=== PATIENT | female | born 1985 | race Caucasian/White ===

== ENCOUNTER 2016-11-21 11:27 | Emergency (ER) | payer OTHER ==
[2016-11-21 11:32] VITALS: BP 107/66; PULSE 90; TEMP 97.6; BMI 25.3
--- NOTE | 2016-11-21 11:55 | PDOC ---
History of Present Illness - General History Source: Patient Exam Limitations: No Limitations - History of Present Illness Initial Comments: 11/21/16 12:15 The patient is a 31 year old female, A1 currently 12 weeks with no significant past medical history who presents to the emergency department with vaginal spotting for 4 days and bilaterally lower abdominal pain after urinating. She often notes having vaginal bleeding after urination accompanied with some mild abdominal discomfort. She also reports having morning sickness, vomiting 2-3 throughout the day. She denies recent fevers, chills, headache or dizziness. She denies recent diarrhea or constipation. She denies recent chest pain or shortness of breath. Allergies: NKA Past surgical history: None reported. Social history: Nonsmoker. Denies EtOH use and recreational drug use. <Victor Hugo Wilhelm - Last Filed: 11/21/16 12:17> <Mary Palma - Last Filed: 11/21/16 18:07> - General Chief Complaint: Vaginal Bleeding Stated Complaint: BLEEDING (12 WKS ) Time Seen by Provider: 11/21/16 11:53 Past History <Victor Hugo Wilhelm - Last Filed: 11/21/16 12:17> - Past Medical History Other medical history: none - Psycho/Social/Smoking Cessation Hx Anxiety: No Suicidal Ideation: No Smoking History: Never smoked Information on smoking cessation initiated: No Hx Alcohol Use: No Drug/Substance Use Hx: No Substance Use Type: None <Mary Palma - Last Filed: 11/21/16 18:07> - Past Medical History Allergies/Adverse Reactions: Allergies Allergy/AdvReac Type Severity Reaction Status Date / Time No Known Allergies Allergy Verified 11/21/16 11:28 Home Medications: Ambulatory Orders Vits #93/Iron Fum/FA [ Formula Tablet] 1 each PO DAILY Review of Systems - Review of Systems Comments:: 11/21/16 12:16 GENERAL/CONSTITUTIONAL: No: fever, chills, weakness, loss of appetite. HEAD, EYES, EARS, NOSE AND THROAT: No: change in vision, ear pain, discharge, sore throat, throat swelling. CARDIOVASCULAR: No: chest pain, lightheadedness, palpitations, syncope RESPIRATORY: No: cough, shortness of breath, wheezing, hemoptysis, stridor. GASTROINTESTINAL: +abd pain and vomiting . No: diarrhea, abdominal cramping, rectal bleeding, constipation. GENITOURINARY: +dysfunctional vaginal bleeding. No: dysuria, hematuria, frequency, urgency, flank pain. MUSCULOSKELETAL: No: back pain, neck pain, joint pain, muscle swelling or pain SKIN : No: lesions, pallor, rash or easy bruising. NEUROLOGIC: No: headache, vertigo, paresthesias, weakness ENDOCRINE: No: unexplained weight gain or loss HEMATOLOGIC/LYMPHATIC: No: anemia, easy bleeding, swelling nodes. <Victor Hugo Wilhelm - Last Filed: 11/21/16 12:17> *Physical Exam - Vital Signs Last Vital Signs Temp Pulse Resp BP Pulse Ox 97.6 F 90 18 107/66 100 11/21/16 11:30 11/21/16 11:30 11/21/16 11:30 11/21/16 11:30 11/21/16 11:30 - Physical Exam Comments: 11/21/16 12:17 GENERAL: The patient is in no acute distress. HEAD: Normal with no signs of trauma. EYES: PERRLA, EOMI, sclera anicteric, conjunctiva clear. ENT: Ears normal, nares patent, oropharynx clear without exudates. Moist mucous membranes. NECK: Normal range of motion, supple without lymphadenopathy, JVD, or masses. LUNGS: Breath sounds equal, clear to auscultation bilaterally. No wheezes, and no crackles. HEART: Regular rate and rhythm, normal S1 and S2 without murmur, rub or gallop. ABDOMEN: Soft, nontender, normoactive bowel sounds. No guarding, no rebound. No masses palpable. EXTREMITIES: Normal range of motion, no edema. No clubbing or cyanosis. No erythema, or tenderness. NEUROLOGICAL: Cranial nerves II through XII grossly intact. Normal speech. No focal neurological deficits. MUSCULOSKELETAL: Back non-tender to palpation, no CVA tenderness SKIN: Warm, Dry, normal turgor, no rashes or lesions noted. <Victor Hugo Wilhelm - Last Filed: 11/21/16 12:17> - Vital Signs Last Vital Signs Temp Pulse Resp BP Pulse Ox 97.6 F 90 18 107/66 100 11/21/16 11:30 11/21/16 11:30 11/21/16 11:30 11/21/16 11:30 11/21/16 11:30 <Mary Palma - Last Filed: 11/21/16 18:07> ED Treatment Course - LABORATORY CBC & Chemistry Diagram: 11/21/16 13:06 11/21/16 13:06 <Mary Palma - Last Filed: 11/21/16 18:07> Medical Decision Making - Medical Decision Making 11/21/16 12:19 Pt comes with pain with urination x 4 days and 4 days of vaginal spotting.Pt has a CLINICAL PSYCHOLOGIST named Tanya for her 12-13 week fetus (2 weeks ago she was told she is about 11 weeks gestation on ultrasound). Pt states that she is blood type O+ and that she is A1 she has a 12 yo child. She has no PMHx and she has no past surg hx. She is on no meds. She has been vomiting 2-3 times daily her usual morning sickness; she ate nothing today, as she came straight to the ER after waking up. 11/21/16 18:06 Pt's labs are normal; UA normal, and sono shows a 13 week 2 day fetus with good FH; stable for d/c home <Mary Palma - Last Filed: 11/21/16 18:07> *DC/Admit/Observation/Transfer - Attestations Scribe Attestion: 11/21/16 12:16 Documentation prepared by Victor Hugo Wilhelm, acting as medical biller/coder for Mary Palma MD. <Victor Hugo Wilhelm - Last Filed: 11/21/16 12:17> - Discharge Dispostion Admit: No <Mary Palma - Last Filed: 11/21/16 18:07> Diagnosis at time of Disposition: Threatened - Discharge Dispostion Disposition: ELOPED Condition at time of disposition: Stable - Referrals Referrals: Yohana Crump [Primary Care Provider] - - Patient Instructions Printed Discharge Instructions: Threatened Print Language: UKRAINIAN
[2016-11-21] MEDS ORDERED: SODIUM CHLORIDE 0.9% 500 ML INFUS.BAG IV ONE (12:18)
[2016-11-21 13:18] LABS: BASOPHIL 1.1 % (0-2.0); MCH 29.4 pg (25.7-33.7); MCHC 33.8 g/dl (32.0-36.0); MEAN PLT VOLUME 13.1 fl (7.5-11.1); NEUTROPHILS 56.5 % (42.8-82.8); PLATELET COUNT 158 K/MM3 (134-434); RDW 13.7 % (11.6-15.6)
[2016-11-21 13:44] LABS: ALBUMIN 3.4 g/dl (3.4-5.0); ANION GAP 8 (8-16); BILIRUBIN,TOTAL 0.3 mg/dL (0.2-1.0); CALCIUM 9.3 mg/dL (8.5-10.1); CO2 28 mmol/L (21-32); CREATININE 0.7 mg/dL (0.55-1.02); GLUCOSE,RANDOM 74 mg/dL (74-106); SGOT/AST 17 U/L (15-37); SGPT/ALT 16 U/L (12-78); TOT PROT 7.5 g/dl (6.4-8.2)
[2016-11-21 13:45] LABS: ALK PHOS 44 U/L (45-117)
[2016-11-21 15:44] LABS: URINE APPEARANCE CLEAR; URINE BILIRUBIN NEGATIVE (NEGATIVE); URINE BLOOD NEGATIVE (NEGATIVE); URINE COLOR COLORLESS; URINE GLUCOSE (UA) NEGATIVE (NEGATIVE); URINE KETONE NEGATIVE (NEGATIVE); URINE LEUK ESTERASE NEGATIVE (NEGATIVE); URINE NITRITE NEGATIVE (NEGATIVE); URINE PROTEIN NEGATIVE (NEGATIVE); URINE UROBILINOGEN NEGATIVE E.U./dl (0.2-1.0)
== END 2016-11-21 16:02 | disposition home or self-care (01) ==
LOC: JER 11:27
DX: O20.0 Threatened abortion (principal); Z3A.12 12 weeks gestation of pregnancy
CPT/HCPCS: 36415; 76801-TC; 80053; 81003; 84702; 85025; 86850; 86900; 86901; 99285-25

== ENCOUNTER 2017-05-15 06:30 | Inpatient (IN) | payer OTHER ==
[2017-05-15] MEDS ORDERED: BUTORPHANOL TARTRATE 1 MG/ML VIAL ONE (07:15)
[2017-05-15] MEDS ORDERED: PROMETHAZINE HCL 25 MG/1 ML VIAL ONE (07:16)
[2017-05-15] MEDS ORDERED: AMPICILLIN SODIUM 2 GM VIAL ONE (07:16)
[2017-05-15] MEDS ORDERED: PROMETHAZINE HCL 25 MG/1 ML VIAL IVPUSH ONE (07:27)
[2017-05-15] MEDS ORDERED: BUTORPHANOL TARTRATE 1 MG/ML VIAL IVPB ONE (07:27)
[2017-05-15] MEDS ORDERED: AMPICILLIN - 2 GM in SODIUM CHLORIDE 100 ML IVPB ONE (07:29)
[2017-05-15] MEDS ORDERED: DEXTROSE 5%-LACTATED RINGERS 1,000 ML IV SCH (07:30)
--- NOTE | 2017-05-15 07:37 | HP ---
Past Medical History - Primary Care Physician PCP:: Layne Ennis - Admission Chief Complaint: 32 yrs , 38.1/7 weeks ,onset Lp & srom at 6.00AM History of Present Illness: PNC at 2, [facility] chart not available h/o abn pap lgsil , colposcopy was done during pregn dating sonogram done on 11/09/16 11.4/7 weeks, edc assigned 05/28/17 anatomy sono 12/3116 20.3 weeks normal gbs neg noted when chart obtained after delivery History Source: Patient, Medical Record Limitations to Obtaining History: No Limitations - Past Medical History PREVENTION RN: No: CVA, Migraine, Seizure Cardiovascular: No: AFIB, HTN, Murmur Pulmonary: No: Asthma Gastrointestinal: Yes: Constipation, Hemorrhoids Renal/: No: UTI ...: 3 ...Para: 2 ...Term: 1 (2004 in ) ...: 1 (2002 at 32 weeks , baby in ) ...LMP: 08/21/16 ... Weeks Gestation by Dates: 38.1 ...EDC by Dates: 05/28/17 ...EDC by Sono: 05/28/17 Heme/Onc: Yes: Anemia Infectious Disease: Yes: Other (not known) Psych: Yes: Other (not known) - Past Surgical History Past Surgical History: Yes: None Hx Myomectomy: No Hx Transabdominal Cerclage: No - Smoking History Smoking history: Never smoked - Alcohol/Substance Use Hx Alcohol Use: No Home Medications - Allergies Allergies/Adverse Reactions: Allergies Allergy/AdvReac Type Severity Reaction Status Date / Time No Known Allergies Allergy Verified 05/15/17 07:20 - Home Medications Home Medications: Ambulatory Orders Vit 93/Iron Fum/Folic [ Formula Tablet] 1 each PO DAILY Physical Exam - Maternity Vital Signs: Selected Entries 05/15/17 17:59 Temperature 98 F Pulse Rate 78 Blood Pressure 117/80 Constitutional: Yes: Well Nourished, Severe Distress Eyes: Yes: WNL HENT: Yes: WNL Neck: Yes: WNL Cardiovascular: Yes: WNL Lungs: Clear to auscultation Breast(s): Yes: Other (not examined) - Abdominal Exam/OB Fundal Height: 40 Number of Fetuses: Single Presentation: Vertex Contractions: Yes Regularity: Regular (2-3 min) Intensity: Strong Monitor Mode: External Heart Rate (range): 130-140 Heart Rate Location: [facility] Category: I Accelerations: Uniform Decelerations: None - Vaginal Exam/OB Vaginal Bleediing: No Speculum Exam: No Dilatation (cm): 4 Effacement (%): 100 Amniotic Membrane Status: Ruptured Nitrazine Test: Positive Amniotic Fluid: Yes: Clear Presentation: Vertex/Position (exam at 7.10 AM) Station: 0 - Physical Exam Musculoskeletal: Yes: WNL Extremities: Yes: WNL. No: Calf Tenderness Edema: LLE: Trace, RLE: Trace Integumentary: Yes: Tattoos Deep Tendon Reflex Grade: Normal +2 ...Motor Strength: WNL Psychiatric: Yes: WNL, Alert, Oriented - Labs Lab Results: Laboratory Tests 05/15/17 05/15/17 05/15/17 07:54 07:54 07:54 Hgb 9.5 L D Hct 29.5 L D Plt Count 144 PT with INR 10.70 INR 0.95 PTT (Actin FS) 27.1 Sodium 137 Potassium 4.1 Chloride 107 Carbon Dioxide 21 D BUN 9 D Creatinine 0.8 RPR Titer HIV 1&2 Antibody Screen HIV P24 Antigen Blood Type Antibody Screen 05/15/17 05/15/17 05/15/17 07:54 07:54 07:54 Hgb Hct Plt Count PT with INR INR PTT (Actin FS) Sodium Potassium Chloride Carbon Dioxide BUN Creatinine RPR Titer Nonreactive HIV 1&2 Antibody Screen Negative HIV P24 Antigen Negative Blood Type O POSITIVE Antibody Screen Negative Problem List - Problems (1) with 38 completed weeks gestation Code(s): Z3A.38 - 38 WEEKS GESTATION OF (2) SROM (spontaneous rupture of membranes) Code(s): CEK5094 - (3) Labor established Code(s): [id number] - Assessment/Plan 32 yrs , 38.1 weeks iup, unknown gbs , srom , in active labor Plan gbs prophylaxis with IVAmpicillin anticipate vag , delivery
[2017-05-15] MEDS ORDERED: OXYTOCIN 20 UNITS in 0.9% NS 20 UNIT/1,000 ML INFUS.BAG IV ONE (07:56)
[2017-05-15] MEDS ORDERED: oxyCODONE HCL 5 MG TABLET PO PRN (08:07)
[2017-05-15] MEDS ORDERED: BENZOCAINE 20% 57 GM BOTTLE TP PRN (08:07)
[2017-05-15] MEDS ORDERED: METHYLERGONOVINE MALEATE 0.2 MG/1 ML AMP IM PRN (08:07)
[2017-05-15] MEDS ORDERED: WITCH HAZEL 50% (TUCKS) 40 PAD/JAR PAD TP PRN (08:07)
[2017-05-15] MEDS ORDERED: BISACODYL 10 MG SUPP.RECT RC PRN (08:07)
[2017-05-15] MEDS ORDERED: BENZOCAINE 28 GM HEMORRHOIDAL OINTMENT TP PRN (08:07)
--- NOTE | 2017-05-15 08:13 | PN ---
Delivery - Delivery Vaginal Delivery: No Problems, Spontaneous Episiotomy/Laceration: None EBL (cc): 200 Delivery, Single - Stages of Labor Date 1st Stage Initiatied: 05/15/17 Time 1st Stage Initiated: 06:00 Date 2nd Stage Initiated: 05/15/17 Time 2nd Stage Initiated: 07:55 Date of Delivery: 05/15/17 Time of Delivery: 07:57 Date Placenta Delivered: 05/15/17 Time Placenta Delivered: 08:00 Placenta: Yes: Spontaneous, Uterine Exploration - Condition of Ribbon Cutter/Parking Enforcement Technician Present: Yes Name: Chacorta Ramos Gender: Male Weight: 7 lb 15 oz Position: Left, OA Total Hours ROM (Hrs/Mins): 2hr, - 1 Minute Total Score: 9 5 Minutes Total Score: 9 - Feeding Plan Initial Plan: Elected not to breastfeed exclusively throughout hospitalization Remarks - Remarks Remarks: 32 yrs 38.1/7 weeks admitted with SROM & in active labor pnc at [address] [place] [address] gbs unknown , one dose iv ampicillin was given stadol 1 mg + phenrgan 25 mg iv stat completed 7 baby delivered intrapartum course uneventful
[2017-05-15] MEDS ORDERED: OXYTOCIN 20 UNITS in 0.9% NS 20 UNIT/1,000 ML INFUS.BAG IV SCH (08:15)
[2017-05-15 08:24] LABS: BASO % 0.7 % (0-2.0); EOS % 1.2 % (0-4.5); HEMATOCRIT 29.5 % (32.4-45.2); HEMOGLOBIN 9.5 GM/dL (10.7-15.3); LYMPH % 35.7 % (8-40); MCH 24.7 pg (25.7-33.7); MCHC 32.2 g/dl (32.0-36.0); MEAN CELL VOLUME 76.6 fl (80-96); MONO % 8.6 % (3.8-10.2); NEUT % 53.8 % (42.8-82.8); PLATELET COUNT 144 K/MM3 (134-434); RBC 3.86 M/mm3 (3.60-5.2); RDW 16.6 % (11.6-15.6); WHITE BLOOD COUNT 9.5 K/mm3 (4.0-10.0)
[2017-05-15 08:48] LABS: ANION GAP 9 (8-16); BLOOD UREA NITROGEN 9 mg/dL (7-18); CALCIUM 7.9 mg/dL (8.5-10.1); CHLORIDE 107 mmol/L (98-107); CO2 21 mmol/L (21-32); CREATININE 0.8 mg/dL (0.55-1.02); GLUCOSE,RANDOM 135 mg/dL (74-106); POTASSIUM 4.1 mmol/L (3.5-5.1); SODIUM 137 mmol/L (136-145)
[2017-05-15 09:02] LABS: INR 0.95 (0.82-1.09); PROTHROMBIN TIME (PATIENT) 10.7 SEC (9.98-11.88)
[2017-05-15 09:05] LABS: ACTIVATED PTT 27.1 SECONDS (26.9-34.4)
[2017-05-15] MEDS: PRENATAL VITAMINS W/ FOLIC ACID TABLET (FP) PO SCH (09:54)
[2017-05-15] MEDS ORDERED: AMPICILLIN - 1 GM in SODIUM CHLORIDE 100 ML IVPB SCH (11:30)
[2017-05-15] MEDS: IBUPROFEN 600 MG TABLET (FP) PO PRN (15:02)
[2017-05-15] MEDS: FERROUS SO4 325 MG TABLET (FP) PO SCH (16:31)
[2017-05-16] MEDS: ACETAMINOPHEN 325 MG TABLET (FP) PO PRN ×2 (06:22→21:14)
[2017-05-16] MEDS: IBUPROFEN 600 MG TABLET (FP) PO PRN ×2 (06:22→21:14)
--- NOTE | 2017-05-16 07:41 | PN ---
Post Progress Note - Subjective Subjective: no complains Post Day: 1 Type of Delivery: Vital Signs: Vital Signs Temperature 98.2 F 05/16/17 06:00 Pulse Rate 82 05/16/17 06:00 Respiratory Rate 20 05/16/17 06:00 Blood Pressure 113/71 05/16/17 06:00 O2 Sat by Pulse Oximetry (%) Breast Exam: Yes: Soft, Other (BF ). No: Engorged Uterus: Yes: Fundus Firm, Fundus below umbilicus, Non-tender Lochia: Yes: Rubra Lochia, amount: Moderate Extremities: Yes: Calves non-tender Perineum: Yes: Intact Activity: Ambulating - Labs Labs: CBC WBC 9.5 K/mm3 (4.0-10.0) 05/15/17 07:54 RBC 3.86 M/mm3 (3.60-5.2) 05/15/17 07:54 Hgb 9.5 GM/dL (10.7-15.3) L D 05/15/17 07:54 Hct 29.5 % (32.4-45.2) L D 05/15/17 07:54 MCV 76.6 fl (80-96) L 05/15/17 07:54 MCH 24.7 pg (25.7-33.7) L 05/15/17 07:54 MCHC 32.2 g/dl (32.0-36.0) 05/15/17 07:54 RDW 16.6 % (11.6-15.6) H D 05/15/17 07:54 Plt Count 144 K/MM3 (134-434) 05/15/17 07:54 MPV 12.0 fl (7.5-11.1) H 05/15/17 07:54 Neutrophils % 53.8 % (42.8-82.8) 05/15/17 07:54 Lymphocytes % 35.7 % (8-40) 05/15/17 07:54 Monocytes % 8.6 % (3.8-10.2) 05/15/17 07:54 Eosinophils % 1.2 % (0-4.5) 05/15/17 07:54 Basophils % 0.7 % (0-2.0) 05/15/17 07:54 Problem List - Problems (1) with 38 completed weeks gestation Code(s): Z3A.38 - 38 WEEKS GESTATION OF (2) SROM (spontaneous rupture of membranes) Code(s): FKK0476 - (3) Labor established Code(s): ZQF7456 - Assessment/Plan stable. anemia, hemodynamically stable pp cbc pending discharge tomorrow
[2017-05-16 08:36] LABS: BASO % 0.4 % (0-2.0); HEMATOCRIT 30.4 % (32.4-45.2); HEMOGLOBIN 9.6 GM/dL (10.7-15.3); LYMPH % 19.3 % (8-40); MCH 24.4 pg (25.7-33.7); MCHC 31.6 g/dl (32.0-36.0); MEAN CELL VOLUME 77.2 fl (80-96); MEAN PLT VOLUME 12.6 fl (7.5-11.1); MONO % 9.5 % (3.8-10.2); NEUT % 68.8 % (42.8-82.8); PLATELET COUNT 164 K/MM3 (134-434); RBC 3.95 M/mm3 (3.60-5.2); RDW 16.7 % (11.6-15.6); WHITE BLOOD COUNT 18.3 K/mm3 (4.0-10.0)
[2017-05-16] MEDS: FERROUS SO4 325 MG TABLET (FP) PO SCH ×2 (08:45→16:57)
[2017-05-16] MEDS: PRENATAL VITAMINS W/ FOLIC ACID TABLET (FP) PO SCH (09:41)
[2017-05-16] MEDS ORDERED: SENNOSIDES/DOCUSATE COMBO (SENNA PLUS) TABLET (UD) PO PRN (22:00)
[2017-05-17] MEDS: FERROUS SO4 325 MG TABLET (FP) PO SCH ×2 (08:00→17:01)
[2017-05-17] MEDS: PRENATAL VITAMINS W/ FOLIC ACID TABLET (FP) PO SCH (09:11)
--- NOTE | 2017-05-17 18:44 | PN ---
Progress Note (short form) - Note Progress Note: ppd 2 no c/o voids ok CBC, BMP 05/16/17 07:30 05/15/17 07:54 Last Vital Signs Temp Pulse Resp BP Pulse Ox 97.7 F 85 20 114/85 05/17/17 10:00 05/17/17 10:00 05/17/17 10:00 05/17/17 10:00 uterus firm ,non tender lochia mild no calf tenderness plan ambulate . d/c home, rtc 4 weeks
[2017-05-18] MEDS: PRENATAL VITAMINS W/ FOLIC ACID TABLET (FP) PO SCH (09:09)
[2017-05-18] MEDS: FERROUS SO4 325 MG TABLET (FP) PO SCH (09:09)
--- NOTE | 2017-05-18 09:12 | DS ---
Physical Exam-CONTENT ENGINEER Vital Signs: Vital Signs Temperature 98.1 F 05/17/17 22:00 Pulse Rate 97 H 05/17/17 22:00 Respiratory Rate 20 05/17/17 22:00 Blood Pressure 98/61 05/17/17 22:00 O2 Sat by Pulse Oximetry (%) Constitutional: Yes: Well Nourished Eyes: Yes: WNL HENT: Yes: WNL Neck: Yes: WNL Cardiovascular: Yes: WNL Respiratory: Yes: WNL Gastrointestinal: Yes: WNL ...Rectal Exam: Yes: WNL Renal/: Yes: WNL Pelvis: Yes: WNL External Genitalia: Yes: Normal ....Post : Yes: Uterus firm, Uterus non-tender, Moderate lochia rubra ( perineum intact) Breast(s): Yes: WNL (bf) Musculoskeletal: Yes: WNL Extremities: Yes: WNL. No: Calf Tenderness Edema: No Integumentary: Yes: WNL Neurological: Yes: WNL, Alert, Oriented ...Motor Strength: WNL Psychiatric: Yes: WNL Labs: CBC, BMP 05/16/17 07:30 05/15/17 07:54 Delivery - Delivery Vaginal Delivery: No Problems, Spontaneous Type of Anesthesia: None Episiotomy/Laceration: None EBL (cc): 200 Delivery, Single - Stages of Labor Date 1st Stage Initiatied: 05/15/17 Time 1st Stage Initiated: 06:00 Date 2nd Stage Initiated: 05/15/17 Time 2nd Stage Initiated: 07:55 Date of Delivery: 05/15/17 Time of Delivery: 07:57 Time Placenta Delivered: 08:00 Placenta: Yes: Spontaneous, Uterine Exploration - Condition of Supervisor General/Wood Experimental Mechanic Present: Yes Name: Chacorta Ramos Gender: Male Weight: 7 lb 15 oz Position: Left, OA Total Hours ROM (Hrs/Mins): 2hr, - 1 Minute Total Score: 9 5 Minutes Total Score: 9 - Feeding Plan Initial Plan: Elected not to breastfeed exclusively throughout hospitalization Remarks - Remarks Remarks: 32 yrs 38.1/7 weeks admitted with SROM & in active labor pnc at [address] [place] [address] gbs unknown , one dose iv ampicillin was given stadol 1 mg + phenrgan 25 mg iv stat completed 7 baby delivered intrapartum course uneventful anemia counselled Discharge Summary Reason For Visit: LABOR Current Active Problems Labor established (Acute) with 38 completed weeks gestation (Acute) SROM (spontaneous rupture of membranes) (Acute) Condition: Stable - Instructions Diet, Activity, Other Instructions: Post Instructions DIET: Continue good diet high in protein, calcium, and iron rich foods. Drink at least eight (8) glasses of water daily in addition to other fluids. ct Regular diet MEDICATIONS: Continue vitamins and iron as previously directed. Motrin and Tylenol may be taken for minor discomfort. ACTIVITY: Mild to moderate exercise may be started in two (2) weeks. Take frequent rest periods. Resume normal activity after six (6) week check up. WOUND CARE OF OPERATIVE SITE: Continue use of perineal bottle until vaginal discharge stops. Keep area clean. Shower daily. Keep abdominal wound dry. Report any drainage or redness to physician. Tub baths, tampons and douches are not permitted for [address] Breast feeding & or Bottle feeding BREAST CARE: (For those that are not breast feeding): If engorgement occurs: Wear tight fitting bra. Take Tylenol or Motrin for pain. Apply cold packs (ice in bags to each breast ) FAMILY PLANNING: There are many control alternatives to pursue and they should be discussed at your first office visit. You may resume sexual activity after your six (6) week check up. (Remember, breast feeding is not a contraceptive) NEXT PHYSICIAN APPOINTMENT: Be certain to call for a six (6) week appointment, unless otherwise directed. Call Clinic or got to Emergency Dept if you have any of the following: Heavy vaginal bleeding Painful urination Leg pain Unusual odor noted to vaginal bleeding High fever Red streaking noted on breast Referrals: Layne Ennis MD [Staff Physician] - Disposition: HOME - Home Medications Comprehensive Discharge Medication List: Ambulatory Orders Vit 93/Iron Fum/Folic [ Formula Tablet] 1 each PO DAILY Acetaminophen [Tylenol .Regular Strength -] 650 mg PO Q3H PRN tablet 05/16/17 Ferrous Sulfate [Feosol] 325 mg PO BIDWM #60 tab 05/16/17 Ibuprofen [Motrin -] 200 mg PO Q4H PRN tablet 05/16/17 Vitamins (Sjr) - 1 tab PO DAILY #30 tablet 05/16/17
[2017-05-18 10:53] VITALS: BP 95/63; PULSE 94; TEMP 97.5
== END 2017-05-18 10:30 | disposition home or self-care (01) | DRG 560 ==
LOC: JDEL 06:30 → JLDR 07:00 → J3W 09:39
PROVIDERS: ADMIT Obstetrics & Gynecology; ATTEND Obstetrics & Gynecology
PROC: 10E0XZZ Delivery of Products of Conception, External Approach (ICD-10-PCS; principal; 2017-05-15)
DX: O99.013 Anemia complicating pregnancy, third trimester (principal); D64.9 Anemia, unspecified; O26.893 Other specified pregnancy related conditions, third trimester; R87.612 Low grade squamous intraepithelial lesion on cytologic smear of cervix (LGSIL); Z3A.38 38 weeks gestation of pregnancy; Z37.0 Single live birth
CPT/HCPCS: 36415; 59409; 80048; 85025; 85610; 85730; 86593; 86850; 86900; 86901; 87389